=== PATIENT | female | born 1990 | race Two or more races ===

== ENCOUNTER → 2019-09-19 | Outpatient (CLI) | payer OTHER ==
[~2019-09-19] MED LIST: PRENATAL CAPLE1 EACH PO
== END | disposition home or self-care (01) ==
LOC: PRENATAL 12:24
DX: O26.851 Spotting complicating pregnancy, first trimester (principal); O35.3XX1 Maternal care for (suspected) damage to fetus from viral disease in mother, fetus 1; O36.80X1 Pregnancy with inconclusive fetal viability, fetus 1

== ENCOUNTER → 2020-04-25 | Outpatient (CLI) | payer OTHER ==
[~2020-04-25] MED LIST changes: +DIALYVITE 800-1 EACH PO
== END | disposition home or self-care (01) ==
LOC: PRENATAL 04-22 13:30
PROVIDERS: ATTEND Obstetrics & Gynecology Maternal & Fetal Medicine
DX: O35.0XX1 Maternal care for (suspected) central nervous system malformation in fetus, fetus 1 (principal); O35.3XX1 Maternal care for (suspected) damage to fetus from viral disease in mother, fetus 1; O98.512 Other viral diseases complicating pregnancy, second trimester; Z36.89 Encounter for other specified antenatal screening; Z3A.22 22 weeks gestation of pregnancy

== ENCOUNTER 2020-04-26 08:07 | Inpatient (IN) | payer OTHER ==
[~2020-04-26] VITALS: Ht 165.1 cm; Wt 72.1 kg
[~2020-04-26 08:07] MED LIST changes: -DIALYVITE 800-1 EACH PO
[2020-04-26] MEDS ORDERED: DIALYVITE 800-1 EACH PO (09:01)
== END 2020-04-28 12:23 | disposition home or self-care (01) | DRG 770 ==
LOC: OB/GYN 08:07 → LDR 08:07 → OB/GYN 04-27 10:58
PROVIDERS: ADMIT Specialist; ATTEND Specialist
PROC: 0HQ9XZZ Repair Perineum Skin, External Approach (ICD-10-PCS; 2020-04-27)
PROC: 10D17ZZ Extraction of Products of Conception, Retained, Via Natural or Artificial Opening (ICD-10-PCS; principal; 2020-04-27 09:00)
DX: O03.4 Incomplete spontaneous abortion without complication (principal); N99.71 Accidental puncture and laceration of a genitourinary system organ or structure during a genitourinary system procedure; Z20.828 Contact with and (suspected) exposure to other viral communicable diseases